=== PATIENT | female | born 1975 | race Caucasian/White ===

== ENCOUNTER 2017-02-12 06:35 | Emergency (ER) | payer BC ==
[~2017-02-12] VITALS: Ht 160 cm; Wt 56.5 kg
[2017-02-12] MEDS ORDERED: ONDANSETRON 2MG/ML, 2ML IVPush ONE (07:00)
[2017-02-12] MEDS ORDERED: SODIUM CHLORIDE FLUSH 10ML SYR IVF ONE (07:00)
[2017-02-12] MEDS ORDERED: SODIUM CHLORIDE 0.9% 1,000ML IVBOLUS ONE (07:00)
[2017-02-12] MEDS ORDERED: FAMOTIDINE 20 MG/2 ML IVP ONE (07:00)
[2017-02-12] MEDS ORDERED: ONDANSETRON 2MG/ML, 2ML ONE (07:31)
[2017-02-12] MEDS ORDERED: HYDROmorphone 1 MG/ML, 1ML ONE ×2 (07:31→08:16)
[2017-02-12] MEDS ORDERED: FAMOTIDINE 20 MG/2 ML ONE (07:31)
[2017-02-12] MEDS: HYDROmorphone 1 MG/ML, 1ML IVPush PRN ×2 (07:33→08:19)
[2017-02-12 07:40] VITALS: BP 112/64
[2017-02-12 07:45] LABS: ASPARTATE AMINO TRANSFERASE 16 U/L (15-37); BLOOD UREA NITROGEN 10 mg/dL (7-18)
== END 2017-02-12 08:26 | disposition home or self-care (01) ==
LOC: ED 08:11
DX: R10.11 Right upper quadrant pain (principal)
CPT/HCPCS: 36415; 76700; 80053; 81003; 83690; 84703; 85025; 85610; 96361; 96374; 96375; 96376; 99285; J1170; J2405; J7030; S0028